=== PATIENT | male | born 1970 | race African-American/Black ===

== ENCOUNTER 2024-12-05 11:29 | Emergency (ER) | payer OTHER ==
[2024-12-05] MEDS ORDERED: Ketorolac Tromethamine 30 MG (1 mL) VIAL ONE (12:13)
[2024-12-05] MEDS ORDERED: Cyclobenzaprine 10 MG TAB ONE (12:13)
[2024-12-05] MEDS ORDERED: Dexamethasone 4 MG TAB ONE (12:13)
== END 2024-12-05 12:35 | disposition home or self-care (01) ==
LOC: MADERS 11:29
DX: M54.6 Pain in thoracic spine (principal); M54.12 Radiculopathy, cervical region; I10 Essential (primary) hypertension; E11.9 Type 2 diabetes mellitus without complications; E78.00 Pure hypercholesterolemia, unspecified; Z76.0 Encounter for issue of repeat prescription
CPT/HCPCS: 96372; 99283; J1885; J8540